=== PATIENT | male | born 1990 | race Caucasian/White ===

== ENCOUNTER 2021-01-14 23:30 | Emergency (ER) | payer BC ==
--- NOTE | 2021-01-15 00:48 | EDM.PDOC ---
ED HPI GENERAL MEDICAL PROBLEM - General Chief Complaint: Back Pain or Injury Stated Complaint: BACK PAIN Time Seen by Provider: 01/15/21 00:47 - History of Present Illness INITIAL COMMENTS - FREE TEXT/NARRATIVE: 30-year-old male presents the emergency room with back pain. Patient has been having ongoing worsening back pain. He is being followed in the clinic for this. He is scheduled for an MRI this coming Thursday. He was seen in the walk-in clinic couple days ago started on a Medrol Dosepak and given hydrocodone thus far this is not helping. He has had several treatments in the clinic without much success. He has had an injection in the clinic this does not seem to have helped and has used nonsteroidal anti-inflammatory medications. Right Upper Back Pain Score (Numeric/FACES): 10 - Related Data Allergies Allergy/AdvReac Type Severity Reaction Status Date / Time No Known Allergies Allergy Verified 01/14/21 23:47 Home Meds: Home Meds Hydrocodone/Acetaminophen [HYDROcodone-Acetaminophen 5-325 MG] 1 each PO TID PRN 01/14/21 [History] methylPREDNISolone [Methylpred Dp] 4 mg PO ASDIRECTED 01/14/21 [History] Famotidine 20 mg PO DAILY #30 tab 01/15/21 [Rx] Naproxen [Naprosyn] 500 mg PO BID #60 tablet 01/15/21 [Rx] Orphenadrine [Norflex] 100 mg PO BID PRN #20 tab 01/15/21 [Rx] Past Medical History Respiratory History: Reports: Asthma Endocrine/Metabolic History: Reports: Obesity/BMI 30+ Social & Family History - Tobacco Use Tobacco Use Status *Q: Never Tobacco User Second Hand Smoke Exposure: No - Recreational Drug Use Recreational Drug Use: No ED ROS GENERAL - Review of Systems Review Of Systems: See Below Constitutional: Reports: No Symptoms Respiratory: Reports: No Symptoms Cardiovascular: Reports: No Symptoms GI/Abdominal: Reports: No Symptoms Musculoskeletal: Reports: Other (See history of present illness) ED EXAM, GENERAL - Physical Exam Exam: See Below Exam Limited By: No Limitations General Appearance: Mild Distress (From the discomfort) Head: Atraumatic, Normocephalic Neck: Normal Inspection, Supple, Non-Tender, Full Range of Motion Respiratory/Chest: No Respiratory Distress, Lungs Clear, Normal Breath Sounds, No Accessory Muscle Use, Chest Non-Tender Cardiovascular: Normal Peripheral Pulses, Regular Rate, Rhythm, No Edema, No Gallop, No JVD, No Murmur, No Rub GI/Abdominal: Normal Bowel Sounds, Soft, Non-Tender, No Organomegaly, No Distention, No Abnormal Bruit, No Mass Back Exam: Other (Low pain on the right side at the L4-5 level in the paraspinous region none muscles). No: Vertebral Tenderness Extremities: Normal Inspection, Other (Straight leg raises are positive at about 20 degrees with pain right into the foot it seems to be more the lateral leg and foot corresponding with the L4-L5 dermatomes) Neurological: Alert, Oriented, Normal Cognition Course - Vital Signs Last Recorded V/S: Last Vital Signs Temp 36.1 C 01/14/21 23:42 Pulse 80 01/14/21 23:42 Resp 18 01/14/21 23:42 BP Pulse Ox 95 01/14/21 23:42 - Orders/Labs/Meds Meds: Medications Discontinued Medications Generic Name Dose Route Start Last Admin Trade Name Manjit PRN Reason Stop Dose Admin Famotidine 40 mg 01/15/21 01:01 01/15/21 01:14 Famotidine 20 Mg Tab PO 01/15/21 01:02 40 mg ONETIME ONE Administration Hydromorphone HCl 1 mg 01/15/21 02:39 01/15/21 02:46 Hydromorphone 1 Mg/Ml Syringe IM 01/15/21 02:40 1 mg ONETIME ONE Administration Ketorolac Tromethamine 60 mg 01/15/21 00:58 01/15/21 01:05 Ketorolac 60 Mg/2 Ml Sdv IM 01/15/21 00:59 60 mg ONETIME ONE Administration Orphenadrine Citrate 100 mg 01/15/21 00:58 01/15/21 01:04 Orphenadrine 100 Mg Tab.Er PO 01/15/21 00:59 100 mg ONETIME ONE Administration - Re-Assessments/Exams Free Text/Narrative Re-Assessment/Exam: 01/15/21 03:30 Did review his x-rays from the 18 of last month. Patient was given 60 mg of IM Toradol 40 mg of p.o. Pepcid as he is on a Solu-Medrol Dosepak. He did not get much pain relief with this this was followed up with a milligram of IM Dilaudid he is starting to get some relief with this and feels as though he can get some rest at home. My discharge plans for him is when he is done with the Medrol Dosepak is to start Naprosyn 500 mg twice daily. Because of his exposure to the steroids and intermittent exposure to nonsteroidals and the starting of routine Naprosyn I will have him take famotidine, or Pepcid 20 mg every morning. He will also be started on Norflex 1 p.o. twice daily. Departure - Departure Time of Disposition: 03:31 Disposition: Home, Self-Care 01 Clinical Impression: Low back pain, Lumbar radiculopathy, right - Discharge Information Referrals: Jayjay Pemberton PA-C [Primary Care Provider] - Forms: ED Department Discharge Additional Instructions: Return to the emergency room with any questions problems or worsening symptoms. Your prescriptions have been sent to the [place] pharmacy in [place] [facility]. Start Pepcid, or that the generic famotidine 20 mg daily usually every morning. After you are all done with the Medrol Dosepak start Naprosyn 500 mg twice daily this is sent electronically to the [place] pharmacy. Also start Norflex this is a muscle relaxant take 1 twice daily. Use caution with driving cars or returning to work until you know how this affects your system. Follow-up for your MRI on Thursday as scheduled. Follow-up in the clinic soon after this. Sepsis Event Note (ED) - Evaluation Sepsis Screening Result: No Definite Risk - Focused Exam Vital Signs: Vital Signs Temp Pulse Resp Pulse Ox 01/14/21 23:42 36.1 C 80 18 95
[2021-01-15] MEDS ORDERED: Ketorolac 60 MG/2 ML SDV IM ONE (00:58)
[2021-01-15] MEDS ORDERED: Orphenadrine 100 MG Tab.ER PO ONE (00:58)
[2021-01-15] MEDS ORDERED: Famotidine 20 MG Tab PO ONE (01:01)
[2021-01-15] MEDS ORDERED: HYDROmorphone 1 MG/ML Syringe IM ONE (02:39)
== END 2021-01-15 03:45 | disposition home or self-care (01) ==
LOC: JD.ED 23:30
DX: M54.16 Radiculopathy, lumbar region (principal); J45.909 Unspecified asthma, uncomplicated; E66.9 Obesity, unspecified; Z68.34 Body mass index [BMI] 34.0-34.9, adult
CPT/HCPCS: 96372; 99283; A9270; J1170; J1885